=== PATIENT | male | born 1985 ===

== ENCOUNTER 2024-04-05 22:40 | Emergency (ER) | payer OTHER ==
[~2024-04-05] VITALS: Ht 167.6 cm; Wt 90.7 kg
[2024-04-05] MEDS ORDERED: Ibuprofen 400 MG Tab PO ONE (23:25)
[2024-04-05] MEDS ORDERED: Acetaminophen 500 MG Tab PO ONE (23:25)
[2024-04-05] MEDS ORDERED: Amoxicillin/Clavulanate K 875 MG Tab PO ONE (23:40)
[2024-04-05] MEDS ORDERED: AMOCLA875 PO (23:40)
== END 2024-04-06 00:15 | disposition home or self-care (01) ==
LOC: ER 22:40
DX: L03.011 Cellulitis of right finger (principal)
CPT/HCPCS: 73140; 99283-25; A9270